=== PATIENT | male | born 1985 | race Caucasian/White ===

== ENCOUNTER 2019-02-04 11:26 | Emergency (ER) | payer SELFPAY ==
[2019-02-04] MEDS ORDERED: Benzocaine 20% Topical Spray UD MUCMEM ONE (11:33)
[2019-02-04] MEDS ORDERED: Lidocaine 2% Viscous Solution 15 ML Cup PO ONE (11:33)
[2019-02-04] MEDS ORDERED: Clindamycin Phosphate 900 MG/6 ML SDV IM ONE (11:46)
[2019-02-04 11:52] VITALS: BP 118/88; PULSE 86
--- NOTE | 2019-02-04 11:57 | EDM.PDOC ---
ED HPI GENERAL MEDICAL PROBLEM - General Chief Complaint: ENT Problem Stated Complaint: TOOTHACHE RT SIDE Time Seen by Provider: 02/04/19 11:32 Source of Information: Reports: Patient History Limitations: Reports: No Limitations - History of Present Illness INITIAL COMMENTS - FREE TEXT/NARRATIVE: History of present illness: []Patient has a decayed right lower molar that has been hurting for a few days and severely for the last 2 days with development of swelling of his right jaw. He denies any difficulty swallowing or breathing but has been feeling ill and unable to go to work. Review of systems: As per history of present illness and below otherwise all systems reviewed and negative. Past medical history: As per history of present illness and as reviewed below otherwise noncontributory. Surgical history: As per history of present illness and as reviewed below otherwise noncontributory. Social history: No reported history of drug or alcohol abuse. Family history: As per history of present illness and as reviewed below otherwise noncontributory. Physical exam: General: Well developed, well nourished in NAD HEENT: Atraumatic, normocephalic, pupils reactive, negative for conjunctival pallor or scleral icterus, mucous membranes moist, throat clear, neck supple, nontender, trachea midline. Mild swelling of the right jaw and submandibular area. He has no stridor and there is no facial swelling. Lungs: Clear to auscultation, breath sounds equal bilaterally, chest nontender. Heart: S1S2, regular, negative for clicks, rubs, or JVD. Abdomen: NABS, Soft, nondistended, nontender. Negative for masses or hepatosplenomegaly. Negative for costovertebral tenderness. Pelvis: Stable nontender. Genitourinary: Deferred. Rectal: Deferred. Extremities: Atraumatic, negative for cords or calf pain. Neurovascular unremarkable. Neuro: Awake, alert, oriented. Cranial nerves II through XII unremarkable. Cerebellum unremarkable. Motor and sensory unremarkable throughout. Exam nonfocal. Skin:warm and dry Diagnostics: Vital signs stable Therapeutics: Clindamycin IM, dental balls ED Course: Stable Impression: Dental abscess Prescriptions: Clindamycin 3 times a day for 10 days Plan: Follow-up with a dentist Definitive disposition and diagnosis as appropriate pending reevaluation and review of above. Right dental Pain Score (Numeric/FACES): 7 - Related Data Allergies Allergy/AdvReac Type Severity Reaction Status Date / Time amoxicillin Allergy Cannot Verified 02/04/19 11:49 Remember Penicillins Allergy Rash Verified 02/04/19 11:49 Home Meds: Home Meds Clindamycin HCl 300 mg PO TID #30 capsule 02/04/19 [Rx] Diclofenac Sodium [Voltaren] 75 mg PO BIDMEALS PRN #20 tab.cr 02/04/19 [Rx] Past Medical History Respiratory History: Reports: Asthma Genitourinary History: Reports: Renal Calculus - Infectious Disease History Infectious Disease History: Reports: Chicken Pox - Past Surgical History HEENT Surgical History: Reports: Tonsillectomy Respiratory Surgical History: Reports: None Musculoskeletal Surgical History: Reports: Hip Replacement Social & Family History - Family History Family Medical History: Noncontributory - Caffeine Use Caffeine Use: Reports: Coffee ED ROS ENT - Review of Systems Review Of Systems: See Below ED EXAM, ENT - Physical Exam Exam: See Below Course - Vital Signs Last Recorded V/S: Last Vital Signs Temp 98.6 F 02/04/19 11:49 Pulse 86 02/04/19 11:49 Resp 16 02/04/19 11:49 BP 118/88 02/04/19 11:49 Pulse Ox 98 02/04/19 11:49 - Orders/Labs/Meds Meds: Medications Discontinued Medications Generic Name Dose Route Start Last Admin Trade Name Freq PRN Reason Stop Dose Admin Benzocaine 2 each 02/04/19 11:33 02/04/19 12:06 Hurricaine One 20% MUCMEM 02/04/19 11:34 2 each ONETIME ONE Administration Clindamycin Phosphate 600 mg 02/04/19 11:46 02/04/19 12:06 Cleocin IM 02/04/19 11:47 600 mg ONETIME ONE Administration Lidocaine HCl 15 ml 02/04/19 11:33 02/04/19 12:06 Xylocaine 2% Viscous PO 02/04/19 11:34 15 ml ONETIME ONE Administration Departure - Departure Time of Disposition: 12:18 Disposition: Home, Self-Care 01 Condition: Good Clinical Impression: Dental abscess - Discharge Information *PRESCRIPTION DRUG MONITORING PROGRAM REVIEWED*: No *COPY OF PRESCRIPTION DRUG MONITORING REPORT IN PATIENT JOANA: No Prescriptions: Clindamycin HCl 300 mg PO TID #30 capsule Diclofenac Sodium [Voltaren] 75 mg PO BIDMEALS PRN #20 tab.cr PRN Reason: Pain Instructions: Dental Abscess, [id number] Referrals: PCP,None [Primary Care Provider] - Forms: ED Department Discharge Additional Instructions: The following information is given to patients seen in the emergency department who are being discharged to home. This information is to outline your options for follow-up care. We provide all patients seen in our emergency department with a follow-up referral. The need for follow-up, as well as the timing and circumstances, are variable depending upon the specifics of your emergency department visit. If you don't have a primary care physician on staff, we will provide you with a referral. We always advise you to contact your personal physician following an emergency department visit to inform them of the circumstance of the visit and for follow-up with them and/or the need for any referrals to a consulting specialist. The emergency department will also refer you to a specialist when appropriate. This referral assures that you have the opportunity for follow-up care with a specialist. All of these measure are taken in an effort to provide you with optimal care, which includes your follow-up. Under all circumstances we always encourage you to contact your private physician who remains a resource for coordinating your care. When calling for follow-up care, please make the office aware that this follow-up is from your recent emergency room visit. If for any reason you are refused follow-up, please contact the [facility] at and asked to speak to the emergency department charge nurse. Take meds as directed, follow up with your primary care physician, return to ER if symptoms worsen or change. [facility] [address] [place] [id number]
== END 2019-02-04 12:28 | disposition home or self-care (01) ==
LOC: MW.ED 11:26
DX: K04.7 Periapical abscess without sinus (principal); Z88.1 Allergy status to other antibiotic agents; Z88.0 Allergy status to penicillin
CPT/HCPCS: 96372; 99282; A9270; J3490